=== PATIENT | female | born 2000 | race African-American/Black ===

== ENCOUNTER 2019-06-30 17:49 | Emergency (ER) | payer OTHER ==
[~2019-06-30] VITALS: Ht 170.2 cm; Wt 145.2 kg
[2019-06-30] MEDS ORDERED: EFFEXOR XR150 MG PO (17:57)
[2019-06-30] MEDS ORDERED: AMITRIPTYLINE H25 M2 PO (17:57)
[2019-06-30] MEDS ORDERED: VISTARIL50 MG PO (17:58)
[2019-06-30 20:03] LABS: ABSOLUTE BASOPHILS 0.1 thou/uL (0.0-0.2); ABSOLUTE EOSINOPHILS 0.3 thou/uL (0.0-0.7); ABSOLUTE LYMPHOCYTES 1.7 thou/uL (0.8-5.3); ABSOLUTE MONOCYTES 0.7 thou/uL (0.0-1.2); ABSOLUTE NEUTROPHILS 5.3 thou/uL (1.6-8.1); BASOPHILS 1.2 %; EOSINOPHILS 3.5 %; HEMATOCRIT 41.3 % (37.0-47.0); HEMOGLOBIN 13.9 gm/dL (12.0-15.0); LYMPHOCYTES 20.9 %; MCHC 33.7 g/dL (28.0-37.0); MCV 83.2 fL (80.0-100.0); MONOCYTES 9.1 %; NUCLEATED RBCS 0 /100WBC; PLATELET COUNT* 223 thou/uL (150-400); POLYS 65.3 %; RBC 4.97 mil/uL (4.20-5.00); RDW-CV 14.1 % (10.5-14.5); WBC 8.1 thou/uL (4.0-11.0)
[2019-06-30 20:11] LABS: CALCIUM 9.6 mg/dL (8.5-10.1); CREATININE 0.8 mg/dL (0.6-1.3); POTASSIUM 4.3 mmol/L (3.5-5.1)
[2019-06-30 20:16] LABS: ALBUMIN 3.3 g/dL (3.4-5.0); TOTAL BILIRUBIN 0.2 mg/dL (<0.1-1.0); TOTAL PROTEIN 7.5 g/dL (6.4-8.2)
[2019-06-30] MEDS ORDERED: NAPROSYN500 MG PO (20:26)
[2019-06-30 20:58] VITALS: BP 133/82
--- NOTE | 2019-07-03 10:45 | EKG ---
[place] [address] ELECTROCARDIOGRAM REPORT Name: ROBERT CUEVA [id number] Admission: 06/30/19 Attend Phys: Discharge: 06/30/19 Date of : [birth year] Report #: [id number] THIS REPORT FOR: //name// [facility] ED Test Date: 2019-06-30 Test Time: 18:02:03 Pat Name: ROBERT CUEVA Department: Room: Gender: F Kiss Mixer: CAROLYN : 2000 Requested By: Susan Aguilar Order Number: [id number] MD: Agustín Bustos Measurements Intervals [place] Rate: 95 P: 59 OR: 160 QRS: 23 QRSD: 78 T: 25 QT: 336 QTc: 423 Interpretive Statements Sinus rhythm LAE, consider biatrial enlargement No previous ECG available for comparison Electronically Signed On 07-03-2019 10:45:37 [employer] by Agustín Bustos [email or web address] <ELECTRONICALLY SIGNED> By: Agustín Bustos MD, [facility] 07/03/19 1045 180 180 Agustín Bustos MD, FACC /EPI
== END 2019-06-30 20:59 | disposition home or self-care (01) ==
LOC: M.ERS 17:49
PROVIDERS: Physician Assistant
DX: R07.89 Other chest pain (principal)

== ENCOUNTER 2020-01-18 23:03 | Emergency (ER) | payer OTHER ==
[~2020-01-18] VITALS: Ht 170.2 cm; Wt 145.2 kg
[~2020-01-18 23:03] MED LIST: AMITRIPTYLINE H25 M2 PO; EFFEXOR XR150 MG PO; NAPROSYN500 MG PO; VISTARIL50 MG PO
[2020-01-18 23:10] VITALS: BP 138/81
[2020-01-18] MEDS ORDERED: AMOXICILLIN 50500 MG PO (23:39)
[2020-01-18] MEDS ORDERED: GARAMYCIN5 ML EA. EAR (23:39)
== END 2020-01-18 23:53 | disposition home or self-care (01) ==
LOC: M.ERS 23:03
DX: H66.91 Otitis media, unspecified, right ear (principal)

== ENCOUNTER 2020-02-20 23:38 | Emergency (ER) | payer OTHER ==
[~2020-02-20] VITALS: Ht 170.2 cm; Wt 145.2 kg
[~2020-02-20 23:38] MED LIST changes: +AMOXICILLIN 50500 MG PO; +GARAMYCIN5 ML EA. EAR
[2020-02-21] MEDS ORDERED: LORCET 5-325 M1 EACH PO (01:22)
[2020-02-21 01:30] VITALS: BP 139/78
== END 2020-02-21 01:31 | disposition home or self-care (01) ==
LOC: M.ERS 23:38
DX: J06.9 Acute upper respiratory infection, unspecified (principal); Z20.828 Contact with and (suspected) exposure to other viral communicable diseases

== ENCOUNTER 2020-07-08 18:48 | Emergency (ER) | payer OTHER ==
[~2020-07-08] VITALS: Ht 170.2 cm; Wt 145.2 kg
[~2020-07-08 18:48] MED LIST changes: +LORCET 5-325 M1 EACH PO
[2020-07-08 22:10] VITALS: BP 155/109
== END 2020-07-08 22:10 | disposition home or self-care (01) ==
LOC: M.ERS 18:48
DX: M79.645 Pain in left finger(s) (principal)

== ENCOUNTER 2021-03-17 04:16 | Emergency (ER) | payer OTHER ==
[~2021-03-17] VITALS: Ht 170.2 cm; Wt 147.4 kg
[2021-03-17] MEDS ORDERED: YAZ 28 TABLET1 EACH PO (04:43)
[2021-03-17 05:08] LABS: URINE BILIRUBIN NEGATIVE (Negative); URINE BLOOD 3+ (Negative); URINE CLARITY CLEAR; URINE COLOR YELLOW; URINE GLUCOSE-RANDOM NEGATIVE (Negative); URINE KETONES TRACE (Negative); URINE LEUKOCYTES-REFLEX NEGATIVE (Negative); URINE NITRITE-REFLEX NEGATIVE (Negative); URINE PROTEIN NEGATIVE (Negative); URINE SPECIFIC GRAVITY >= 1.030 (1.005-1.030); URINE UROBILINOGEN 0.2 E.U./dl (0.2-1.0)
[2021-03-17 05:19] LABS: SQUAMOUS 4-10 Moderate /LPF (0-3); URINE WBC-REFLEX 0-5 Rare /HPF (0-5)
[2021-03-17 05:20] LABS: CASTS None Seen /LPF (None Seen); CRYSTALS None Seen /LPF (None Seen); MUCUS 0-3 Light strn/LPF (None Seen); URINE RBC 3-10 Few /HPF (0-2)
[2021-03-17 05:44] VITALS: BP 163/110
== END 2021-03-17 05:44 | disposition home or self-care (01) ==
LOC: M.ERS 04:16
PROVIDERS: Personal Emergency Response Attendant
DX: N93.9 Abnormal uterine and vaginal bleeding, unspecified (principal); E28.2 Polycystic ovarian syndrome; Z79.899 Other long term (current) drug therapy; Z91.09 Other allergy status, other than to drugs and biological substances

== ENCOUNTER 2021-04-16 03:12 | Emergency (ER) | payer OTHER ==
[~2021-04-16] VITALS: Ht 170.2 cm; Wt 147.4 kg
[~2021-04-16 03:12] MED LIST changes: +YAZ 28 TABLET1 EACH PO
[2021-04-16] MEDS ORDERED: PROAIR HFA8.5 GM INH (04:20)
[2021-04-16 04:26] VITALS: BP 151/81
--- NOTE | 2021-04-16 15:47 | EKG ---
[place] [address] ELECTROCARDIOGRAM REPORT Name: ROBERT CUEVA Room: [facility]#: [id number] Admission: 04/16/21 Attend Phys: Discharge: 04/16/21 Date of : [birth year] Date of Service: 04/16/21 032 Report #: [id number] THIS REPORT FOR: //name// [facility] ED Test Date: 2021-04-16 Test Time: 03:21:37 Pat Name: ROBERT CUEVA Department: Room: Gender: Hospice Director: ABRAHAN : 2000 Requested By: Bettye Monique Order Number: [id number] : Ayush Sim Measurements Intervals [place] Rate: 103 P: 64 FL: 166 QRS: 33 QRSD: 76 T: 23 QT: 323 QTc: 423 Interpretive Statements Sinus tachycardia Compared to ECG 06/30/2019 18:02:03 Sinus rate has increased Electronically Signed On 04-16-2021 15:47:17 CDT by Ayush Sim [email or web address] <ELECTRONICALLY SIGNED> By: Ayush Sim MD, [facility] 04/16/21 1547 0321 [id number] Ayush Sim MD, [facility] /EPI
== END 2021-04-16 04:26 | disposition home or self-care (01) ==
LOC: M.ERS 03:12
DX: R06.02 Shortness of breath (principal); Z20.822 Contact with and (suspected) exposure to COVID-19; E66.01 Morbid (severe) obesity due to excess calories; Z87.42 Personal history of other diseases of the female genital tract; Z79.899 Other long term (current) drug therapy; Z68.43 Body mass index [BMI] 50.0-59.9, adult